=== PATIENT | male | born 1995 | race Caucasian/White ===

== ENCOUNTER 2023-06-09 18:55 | Emergency (ER) | payer SELFPAY ==
[2023-06-09 18:58] VITALS: BP 138/87; PULSE 94; RESP 12; TEMP 35.9; O2SAT 98; BMI 39.8
--- NOTE | 2023-06-09 19:25 | EX.ED.DYSGE1 ---
HPI History of Present Illness Chief Complaint: Syncope Informant: patient Narrative Narrative: Healthy 28-year-old male presents just after having a syncopal episode. He states because of the cold weather he has had some intermittent coughing but does not feel ill. He states he coughed really hard and suddenly passed out. He woke up maybe about a minute or so later feeling okay but wondering what happened. He did not fall or injure himself. He denies any prodromal chest discomfort or dyspnea. He chronically has some mild dyspnea with exertion up stairs but he admits he does not exert himself very much and is out of shape. He denies any recent illness. PFSH PFSH Medical History no medical history no medical history Allergy/AdvReac Type Severity Reaction Status Date / Time bee venom protein (honey bee) Allergy Severe Anaphylaxis Verified 06/09/23 18:57 Social History Smoking Status: Never smoker ROS ROS ED Constitutional Constitutional ED: Denies chills or fever(s) Eyes Eyes: Denies change in vision or diplopia ENT ENT ED: Denies rhinorrhea or sore throat Cardiovascular Cardiovascular: Reports syncope; Denies chest pain, orthopnea, palpitations, paroxysmal nocturnal dyspnea or racing heartbeat Respiratory/Chest Respiratory/Chest: Reports cough; Denies dyspnea, orthopnea or paroxysmal nocturnal dyspnea Gastrointestinal Gastrointestinal: Denies abdominal pain, diarrhea, nausea or vomiting Genitourinary Genitourinary ED: Denies dysuria or hematuria Musculoskeletal Musculoskeletal: Denies back pain or neck pain Integumentary Denies abscess or rash Neurologic Neurologic: Denies headache(s), paresthesias or weakness Psychiatric Psychiatric: Denies anxiety or suicidal thoughts EXAM Physical Exam Const Vital Signs: 06/09/23 18:58 06/09/23 19:05 Temperature 96.6 F L Temperature Source Temporal Pulse Rate 94 Respiratory Rate 12 Respiratory Effort Normal Non-Labored Respiratory Pattern Normal Blood Pressure 138/87 H Blood Pressure Mean 104 Pulse Ox 98 Oxygen Delivery Method Room Air Positive well nourished, well developed and obese General Appearance ED: well developed and NAD Nutritional Appearance: obese HEENT Reports moist mucous membranes normocephalic and atraumatic Eyes PERRL and EOMs intact bilaterally Neck full ROM and supple Resp normal respiratory effort and clear to auscultation bilaterally Cardio regular rate, regular rhythm and no murmurs GI non-tender and non-distended Auscultation: normoactive bowel sounds Palpation: soft Back/Spine no CVA tenderness General Back: other FROM Extremity normal to inspection General Extremety ED: Negative for edema, pulses abnormal or tenderness General Extremity: Negative for edema or pulses abnormal Neuro oriented x3, CN's II-XII intact bilaterally and no sensory deficits noted Sensorium / Orientation: awake and alert Motor Exam: strength 5/5 throughout Skin no rashes or lesions noted and no wounds MDM MDM MDM Narrative Medical decision making narrative: EKG was obtained and is normal. This is consistent with vasovagal syncope. His vital signs are normal. I do not think he needs any other emergent testing and I am comfortable clearing him for work. He was advised that this could happen again if he coughs very hard or does other vagal maneuvers, and to use caution. Rhythm Strip Rhythm Strip: Sinus Rhythm Rate: 87 Ectopy: None EKG Initial EKG: Attestation: I personally reviewed and interpreted this EKG as follows: Interpretation: Sinus Rhythm, No Acute Injury Pattern and AV Block (1st deg) Prior EKG tracings: not available for review Prior: No Prior Discharge Plan Triage Chief Complaint: Syncope ED Provider: éCsar Jensen Dx/Rx/DC Orders Clinical Impression: Vasovagal syncope Instructions: Understanding Vasovagal Syncope Stand Alone Forms: ED Work / School Excuse Activity Restrictions/Additional Instructions: Be aware that coughing very hard could make you have another episode. If you feel lightheaded afterwards, try to get your head down between your legs if it is safe to do so. Disposition Disposition: Home, Self Care
== END 2023-06-09 19:49 | disposition home or self-care (01) ==
LOC: ED 19:48
PROVIDERS: Emergency Provider Emergency Medicine; Visit Provider Emergency Medicine
DX: R55 Syncope and collapse (principal); R06.00 Dyspnea, unspecified; E66.9 Obesity, unspecified
CPT/HCPCS: 93005; 99282